=== PATIENT | male | born 1980 | race Caucasian/White ===

== ENCOUNTER 2021-01-24 17:29 | Day surgery (SDC) | payer OTHER ==
[2021-01-24 18:16] LABS: BASOPHIL 0.5 % (0-2); EOSINOPHIL 1.3 % (0-5); HCT 41.3 % (42.0-52.0); HGB 15.5 g/dl (13.2-18.0); LYMPHOCYTE 47.5 % (15-48); MCH 32.8 pg (25.0-31.0); MCHC 37.5 g/dL (32.0-36.0); MCV 87.5 fL (78.0-100.0); MONOCYTE 8.4 % (0-12); MPV 9.2 fL (6.0-9.5); NEUTROPHIL 42.2 % (41-80); NRBC 0; PLT 341 K/uL (150-400); RBC 4.72 M/uL (4.70-6.00); RDW 12.6 % (11.5-14.0); WBC 8.7 K/uL (4.0-10.5)
[2021-01-24 18:29] LABS: CREATININE 1.05 mg/dL (0.67-1.17); POTASSIUM 4.1 mmol/L (3.5-5.1)
[2021-01-24] MEDS ORDERED: OXY-IR 5MG5 MG PO (21:29)
[2021-01-24] MEDS ORDERED: ACETAMINOPHEN500 M1 PO (21:29)
[2021-01-24] MEDS ORDERED: COLACE100 MG PO (21:29)
[2021-01-24] MEDS ORDERED: MOTRIN600 MG PO (21:29)
--- NOTE | 2021-01-24 22:15 | NUR ---
PT RECEIVED FROM PACU. ORIENTED PT AND TO CALL LIGHT AND ROOM. VSS.
[2021-01-24] MEDS ORDERED: ZOFRAN4 M1 PO (23:39)
--- NOTE | 2021-01-25 00:28 | NUR ---
PT STATES URINATED AFTER SURGERY.
--- NOTE | 2021-01-25 00:30 | NUR ---
0020 DC INSTRU[employer] REVIEWED WITH PT AND . VSS. PT TRANSPORTED TO PRIVATE VEHICLE VIA WHEELCHAIR.
== END 2021-01-25 00:25 | disposition home or self-care (01) ==
LOC: FER 17:29 → FOR 19:40
PROVIDERS: Nurse Practitioner Family
DX: K42.0 Umbilical hernia with obstruction, without gangrene (principal); Z20.822 Contact with and (suspected) exposure to COVID-19
CPT/HCPCS: 36415; 80048; 85025; J1100; J1170; J1644; J2405; J2543; J2704; J3010; J7030; J7120; U0002